=== PATIENT | female | born 1975 | race Caucasian/White ===

== ENCOUNTER 2020-01-11 12:00 | Emergency (ER) | payer BC, OTHER ==
[~2020-01-11] VITALS: Ht 152.4 cm; Wt 64.4 kg
[2020-01-11 12:00] VITALS: BP 127/94
[~2020-01-11 12:00] MED LIST: AMLO5TAB2 PO; HYDR10TA13 PO; HYDR20TA; HYDR20TA PO; INSASP10V; INSASP10V SQ; INSU100V6; INSU100V6 SQ; LEVO125T; LISI40TA PO; LVT.112T PO; MTP50T PO; PREN1TAB39 PO
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
--- OUTSIDE RECORDS SUMMARY | 2020-01-11 13:00 | XMS REPORT | CCD ---
Author Author Helena Key Organization Elida Noriega MD, [facility] Address [address] [place] [address] Phone Care Team Providers Care Registered Nurse Maternity Name Role Phone PP Unavailable CCM Unavailable Summary Purpose Interface Exchange Insurance Providers Payer name Policy type / Coverage type Covered democrat ID Effective Begin Date Effective End Date Blue Cross Blue [facility] e Cross/Blue Shield [id number] 2016 Un known Family history Father Diagnosis Age At Onset Hypertension Unknown Hyperlipidemia Unknown Diabetes mellitus Type 2 Unknown Mother Diagnosis Age At Onset Diabetes mellitus Type 2 Unknown Social History Social History Element Codes Description Effective Dates Marital status Unknown M arried 11/11/2015 Number of children Unknown 2 11/11/2015 Employment Unknown 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 [employer] 11/11/[address]: 160564286 Never smoker 11/11/2015 Alcohol history Unknown occasionally drinks alcohol 11/11/2015 Allergies, Adverse Reactions, Alerts Substance Reaction Codes Entered Date Inactivated Date Status AUGMENTIN rash RxNorm: 354307 11/11/2015 No Inactive Date Active Past Medical History Illness Codes Condition Status Onset Date Resolved Date Hypothryroidism Unknown Active 12/10/2016 Unknow n Essential (primary) hypertension ICD-9: 401.9 ICD-10: I10 Active 11/10/2015 Unknown Hypothyroidism, unsp ecified ICD-9: 244.9 ICD-10: E03.9 Active 12/10/2016 Unknown Type 1 diabetes han itus without complications ICD-9: 250.01 ICD-10: E10.9 Active 11/10/2015 Unknown 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 Unknow n Celiac disease Unknown Active 11/11/2015 Unknow n Hypertension Unknown Active 11/11/2015 Unknow n Nonscarring hair los s, unspecified ICD-9: 704.00 ICD-10: L65.9 Active 11/10/2015 Unknown 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 ICD-10: E27.1 Active 11/10/2015 Unknown Problems Condition Codes Effectiv e Dates Condition Status Hypothryroidism Unknown 12/10/2016 Active Essential (primary) hypertension ICD-9: 401.9 ICD-10: I10 11/10/2015 Active Hypothyroidism, unsp ecified ICD-9: 244.9 ICD-10: E03.9 12/10/2016 Active Type 1 diabetes han itus without complications ICD-9: 250.01 ICD-10: E10.9 11/10/2015 Active 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 Celiac disease Unknown 11/11/2015 Active Hypertension Unknown 11/11/2015 Active Nonscarring hair los s, unspecified ICD-9: 704.00 ICD-10: L65.9 11/10/2015 Active 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 ICD-10: E27.1 11/10/2015 Active Medications Medication Codes Instruc tions Start Date Stop Date Sta tus Fill Instructions Novolog Flexpen 100 unit/mL subcutaneous RxNorm: 9816188 INJECT 1 UNIT FOR EV BRYCE 20 GRAMS OF CARBS PLUS 1 UNIT FOR EVERY 50MG/DL OVER 120MG/DL, UNLESS BG IS>250MG/DL, THEN USE 1:35MG/DL TO CORRECT 12/31/2015 12/09/2016 Inactive Novolog Flexpen 100 unit/mL subcutaneous RxNorm: 0869739 6-10 with meals and 6-15 Prn Unit(s) SQ 12/30/2015 12/30/2015 Inactive Lantus 100 unit/mL s ubcutaneous solution RxNorm: 483672 35 Unit(s) SQ [facility] 11/11/2015 12/09/2016 In active Lantus 100 unit/mL s ubcutaneous solution RxNorm: 799540 30 Unit(s) SQ QA 11/06/2015 11/10/2015 In active 30 day supply lisinopril 20 mg tablet RxNorm: 158943 1 Tablet(s) PO daily No Start Date Active levothyroxine 112 mc g tablet RxNorm: 868388 1 Tablet(s) PO daily No Start Date Active Synthroid 112 mcg ta blet RxNorm: 275136 1 Tablet(s) PO daily No Start Date Active hydrocortisone 20 mg tablet RxNorm: 966149 1 Tablet(s) PO in the am and 1/2 tab at noon No Start Date Active Lantus 100 unit/mL s ubcutaneous solution RxNorm: 224282 30 Unit(s) SQ QAM No Start Date 11/05/2015 Inactive Novolog Flexpen 100 unit/mL subcutaneous RxNorm: 5548824 6-10 with meals and 6-15 Prn Unit(s) SQ No Start Date 12/29/2015 Inactive Medication Administered No Medication Administered data Immunizations No Immunization data Assessments Condition Codes Effectiv e Dates Hypothyroidism, unspecified ICD-10: E03.9 ICD-9: 244.9 12/10/2016 Essential (primary) hypertension ICD -10: I10 ICD-9: 401.9 12/10/2016 Type 1 diabetes mellitus without complications ICD-10: E10.9 ICD-9: 250.01 12/10/2016 Nonscarring hair loss, unspecified I CD-10: L65.9 ICD-9: 704.00 11/11/2015 Primary adrenocortical insufficiency ICD-10: E27.1 ICD-9: 255.41 11/11/2015 Reason For Visit Reason For Visit Effective Dates Notes diabetes mellitus 12/10/2016 diabetes mellitus 11/11/2015 Results No Results data Review of Systems System Result Effective Dates Constitutional No recent illness 12/10/2016 Constitutional No anorexia 12/10/2016 Constitutional No night sweats 12/10/2016 Constitutional No chills 12/10/2016 Constitutional No diaphoresis 12/10/2016 Constitutional No fatigue 12/10/2016 Constitutional No fever 12/10/2016 Constitutional No insomnia 12/10/2016 Constitutional No malaise 12/10/2016 Constitutional No weight loss 12/10/2016 Constitutional No weight gain 12/10/2016 Eyes No eye discharge Eyes No eye erythema Ears/Nose/Throat/Neck No dizziness 12/10/2016 Ears/Nose/Throat/Neck No headache 12/10/2016 Ears/Nose/Throat/Neck No nasal allergies 12/10/2016 Ears/Nose/Throat/Neck No nasal discharge 12/10/2016 Cardiovascular No chest pain/pressure 12/10/2016 Cardiovascular No dyspnea 12/10/2016 Cardiovascular No edema 12/10/2016 Respiratory No productive sputum 12/10/2016 Respiratory No chest congestion 12/10/2016 Respiratory No cough Gastrointestinal No abdominal pain 12/10/2016 Gastrointestinal No constipation 12/10/2016 Gastrointestinal No diarrhea 12/10/2016 Genitourinary/Nephrology No dysuria 12/10/2016 Dermatologic No rash Neurologic No alteration of consciousness 12/10/2016 Psychiatric No anxiety 0 12/10/2016 Endocrine No dry or coarse skin 12/10/2016 Hematologic/Lymphatic No abnormal ec chymoses 12/10/2016 Constitutional No recent illness 11/11/2015 Constitutional No anorexia 11/11/2015 Constitutional No night sweats 11/11/2015 Constitutional No chills 11/11/2015 Constitutional No diaphoresis 11/11/2015 Constitutional No fatigue 11/11/2015 Constitutional No fever 11/11/2015 Constitutional No insomnia 11/11/2015 Constitutional No malaise 11/11/2015 Constitutional No weight loss 11/11/2015 Constitutional No weight gain 11/11/2015 Eyes No eye discharge Eyes No eye erythema Ears/Nose/Throat/Neck No dizziness 11/11/2015 Ears/Nose/Throat/Neck No headache 11/11/2015 Ears/Nose/Throat/Neck No nasal allergies 11/11/2015 Ears/Nose/Throat/Neck No nasal discharge 11/11/2015 Cardiovascular No chest pain/pressure 11/11/2015 Cardiovascular No dyspnea 11/11/2015 Cardiovascular No edema 11/11/2015 Respiratory No productive sputum 11/11/2015 Respiratory No chest congestion 11/11/2015 Respiratory No cough Gastrointestinal No abdominal pain 11/11/2015 Gastrointestinal No diarrhea 11/11/2015 Gastrointestinal No constipation 11/11/2015 Genitourinary/Nephrology No dysuria 11/11/2015 Musculoskeletal joint complaint 11/11/2015 Dermatologic No rash Neurologic No alteration of consciousness 11/11/2015 Psychiatric No anxiety 0 11/11/2015 Endocrine No dry or coarse skin 11/11/2015 Hematologic/Lymphatic No abnormal ec chymoses 11/11/2015 Physical Exam Exam Name System Name It em Name Status Result Effective Dates Notes Full Exam - General 1994 Constitutional general appearance Overall: well developed 12/10/2016 None Full Exam - General 1994 Constitutional general appearance Overall: in no acute distress 12/10/2016 None Full Exam - General 1994 Constitutional general appearance Overall: well nourished 12/10/2016 None Full Exam - General 1994 Eyes conjunctiva/eyelids Overall: conjunctiva clear 12/10/2016 None Full Exam - General 1994 Eyes pupils and irises Overall: pupils equal, round, reactive to light and accomodation 12/10/2016 None Full Exam - General 1994 Ears/Nose/Throat otoscopic exam Overall: external auditory canals clear 12/10/2016 None Full Exam - General 1994 Ears/Nose/Throat otoscopic exam Overall: tympanic membranes clear 12/10/2016 None Full Exam - General 1994 Ears/Nose/Throat oral cavity/pharynx/larynx Overall: oral mucosa clear 12/10/2016 None Full Exam - General 1994 Respiratory auscultation Overall: breath sounds clear bilaterally 12/10/2016 None Full Exam - General 1994 Respiratory respiratory effort/rhythm Overall: no retractions 12/10/2016 None Full Exam - General 1994 Respiratory respiratory effort/rhythm Overall: normal rate 12/10/2016 None Full Exam - General 1994 Cardiovascular auscultation of heart Overall: regular rate 12/10/2016 None Full Exam - General 1994 Cardiovascular auscultation of heart Overall: normal heart sounds 12/10/2016 None Full Exam - General 1994 Cardiovascular auscultation of heart Overall: no murmurs 12/10/2016 None Full Exam - General 1994 Abdomen abdominal exam Overall: no tenderness 12/10/2016 None Full Exam - General 1994 Abdomen abdominal exam Overall: normal bowel sounds 12/10/2016 None Full Exam - General 1994 Lymphatic neck nodes Overall: anterior cervical chain benign 12/10/2016 None Full Exam - General 1994 Lymphatic neck nodes Overall: posterior cervical chain benign 12/10/2016 None Full Exam - General 1994 Musculoskeletal gait and station Overall: normal gait 12/10/2016 None Full Exam - General 1994 Musculoskeletal gait and station Overall: normal station 12/10/2016 None Full Exam - General 1994 Integument inspection of skin Overall: few scattered moles, no gross abnormalities 12/10/2016 None Full Exam - General 1994 Neurologic cranial nerves Overall: crainial nerves 2 - 12 grossly intact 12/10/2016 None Full Exam - General 1994 Psychiatric orientation/consciousness Overall: oriented to person, place and time 12/10/2016 None Full Exam - General 1994 Constitutional general appearance Overall: well developed 11/11/2015 None Full Exam - General 1994 Constitutional general appearance Overall: in no acute distress 11/11/2015 None Full Exam - General 1994 Constitutional general appearance Overall: well nourished 11/11/2015 None Full Exam - General 1994 Psychiatric orientation/consciousness Overall: oriented to person, place and time 11/11/2015 None Full Exam - General 1994 Neurologic cranial nerves Overall: crainial nerves 2 - 12 grossly intact 11/11/2015 None Full Exam - General 1994 Integument inspection of skin Overall: few scattered moles, no gross abnormalities 11/11/2015 None Full Exam - General 1994 Musculoskeletal gait and station Overall: normal gait 11/11/2015 None Full Exam - General 1994 Musculoskeletal gait and station Overall: normal station 11/11/2015 None Full Exam - General 1994 Lymphatic neck nodes Overall: anterior cervical chain benign 11/11/2015 None Full Exam - General 1994 Lymphatic neck nodes Overall: posterior cervical chain benign 11/11/2015 None Full Exam - General 1994 Abdomen abdominal exam Overall: no tenderness 11/11/2015 None Full Exam - General 1994 Abdomen abdominal exam Overall: normal bowel sounds 11/11/2015 None Full Exam - General 1994 Cardiovascular auscultation of heart Overall: regular rate 11/11/2015 None Full Exam - General 1994 Cardiovascular auscultation of heart Overall: no murmurs 11/11/2015 None Full Exam - General 1994 Cardiovascular auscultation of heart Overall: normal heart sounds 11/11/2015 None Full Exam - General 1994 Respiratory respiratory effort/rhythm Overall: no retractions 11/11/2015 None Full Exam - General 1994 Respiratory respiratory effort/rhythm Overall: normal rate 11/11/2015 None Full Exam - General 1994 Respiratory auscultation Overall: breath sounds clear bilaterally 11/11/2015 None Full Exam - General 1994 Ears/Nose/Throat otoscopic exam Overall: external auditory canals clear 11/11/2015 None Full Exam - General 1994 Ears/Nose/Throat otoscopic exam Overall: tympanic membranes clear 11/11/2015 None Full Exam - General 1994 Ears/Nose/Throat oral cavity/pharynx/larynx Overall: oral mucosa clear 11/11/2015 None Full Exam - General 1994 Eyes conjunctiva/eyelids Overall: conjunctiva clear 11/11/2015 None Full Exam - General 1994 Eyes pupils and irises Overall: pupils equal, round, reactive to light and accomodation 11/11/2015 None Procedures No Procedures data Vital Signs Date Vital 12/10/2016 Blood Pressure 1: 136/86 Code: 8480-6 BMI: 29.2 Code: 76302-0 Heart Rate 1: 75 bpm Height: 5' SpO2: 98% Weight: 149 lbs 8 oz 11/11/2015 Blood Pressure 1: 150/90 Code: 8480-6 Blood Pressure 1: 148/88 Code: 8480-6 BMI: 27.9 Code: 57699-9 Heart Rate 1: 70 bpm Height: 5' SpO2: 99% Weight: 143 lbs Functional Status No Functional Status data History of Present Illness Symptom Name Status Resu lt Effective Date Notes diabetes mellitus Quality insulin dependent 12/10/2016 None diabetes mellitus Pertinent Findings Denies dizziness 12/10/2016 None diabetes mellitus Pertinent Findings Denies dyspnea 12/10/2016 None 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 hypothyroid Onset and Resolution ongoing 12/10/2016 None hypothyroid Pertinent Findings Denies coarse hair 12/10/2016 None hypothyroid Pertinent Findings Denies coarse skin 12/10/2016 None hypothyroid Pertinent Findings hair loss 12/10/2016 None diabetes mellitus Test results HgbA1c level 7.3 12/10/2016 None diabetes mellitus Blood glucose levels _ 12/10/2016 None diabetes mellitus Significant Medications insulin 12/10/2016 pump diabetes mellitus Alleviating Factors insulin 12/10/2016 None diabetes mellitus Nutrition ADA diet 12/10/2016 None diabetes mellitus Quality insulin dependent 11/11/2015 None diabetes mellitus Test results Pt checking blood glucose readings, did not bring results to clinic 11/11/2015 None diabetes mellitus Glucose monitoring before meals 11/11/2015 None diabetes mellitus Glucose monitoring fasting 11/11/2015 None diabetes mellitus Glucose monitoring bedtime 11/11/2015 None diabetes mellitus Pertinent Findings Denies dizziness 11/11/2015 None diabetes mellitus Pertinent Findings Denies dyspnea 11/11/2015 None 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 P ATIENT, LEVEL III Diagnosis: Type 1 diabetes mellitus without complications[ICD10: E10.9] Diagnosis: Essential (primary) hypertension[ICD10: I10] Diagnosis: Hypothyroidism, unspecified[ICD10: E03.9] [facility] CPT-4: 90153 12/10/2016 ([id number]) OFFICE VISI T [facility] - LEVEL 3 Diagnosis: Essential (primary) hypertension[ICD10: I10] Diagnosis: Type 1 diabetes mellitus without complications[ICD10: E10.9] Diagnosis: Primary adrenocortical insufficiency[ICD10: E27.1] Diagnosis: Nonscarring hair loss, unspecified[ICD10: L65.9] [facility] CPT-4: 03519 11/11/2015 Plan of Care Planned Activity Notes C odes Status Date Visit Plan: Hypertension - well controll ed - continue with current medications, continue with no added salt diet. 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 Pt is to continue with current dose of medication unless directed otherwise. Check labs at regular intervals wither q 3 months or q 6 months based on previous levels of control. 2016 Patient Education: Patient Medication Summary Completed 12/10/2016 Patient Education: Obesity Completed 12/10/2016 Appointment: Caroline Key WPtel: [phone] (15 min) Moderate 12/03/2016 Appointment: Wanda Lau [facility] [phone] [id number] [place] (15 min) Moderate 08/24/2016 Visit Plan: Diabetes Mellitus - type 1- I have recommended for the patient to have follow up labs prior to the next office visit. The patient has been instructed to continue with current medications as previously directed, continue with regular FSBS monitoring to assure continued control of diabetes. Pt to call for any acute concerns, complaints, or if the blood glucose readings are starting to become less controlled.Hypertension - well controlled - continue with current medications, continue with no added salt diet. Pt has been encouraged to exercise daily.The pt has been advised to call the office if there are any acute concerns about change in blood pressure readings at home. 2015 Appointment: Caroline Key [facility] [phone] [phone] New Patient 11/11/2015 Patient Education: Patient Medication Summary Completed 11/11/2015 Patient Education: Obesity Completed 11/11/2015 Care Plan: Referral Order SNOMED-CT : [id number] Pending 11/11/2015 Referral: Vidhi Conroy Referral Completed Referral: Vidhi Conroy Referral Initiated Instructions Comment . Hypertension - wel l controlled - continue with current medications, continue with no added salt diet. Pt has been encouraged to exercise daily. The pt has been advised to call the office if there are any acute concerns about change in blood pressure readings at home. 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 Pt is to continue with current dose of medication unless directed otherwise. Check labs at regular intervals wither q 3 months or q 6 months based on previous levels of control. Refer to Dr Conroy Recommend well woman exam . Diabetes Mellitus - type 1- I have re commended for the patient to have follow up labs prior to the next office visit. The patient has been instructed to continue with current medications as previously directed, continue with regular FSBS monitoring to assure continued control of diabetes. Pt to call for any acute concerns, complaints, or if the blood glucose readings are starting to become less controlled. Hypertension - well controlled - continue with current medications, continue with no added salt diet. Pt has been encouraged to exercise daily. The pt has been advised to call the office if there are any acute concerns about change in blood pressure readings at home.
--- OUTSIDE RECORDS SUMMARY | 2020-01-11 13:00 | XMS REPORT | CCD ---
Author Author Helena Key Organization Elida Noriega MD, [facility] Address [address] [place] [address] Phone Care Team Providers Care Research Subject Name Role Phone PP Unavailable CCM Unavailable Summary Purpose Interface Exchange Insurance Providers Payer name Policy type / Coverage type Covered constitution party ID Effective Begin Date Effective End Date Blue Cross Blue [facility] e Cross/Blue Shield [id number] 2016 Un known Family history Father Diagnosis Age At Onset Hypertension Unknown Hyperlipidemia Unknown Diabetes mellitus Type 2 Unknown Mother Diagnosis Age At Onset Diabetes mellitus Type 2 Unknown Social History Social History Element Codes Description Effective Dates Marital status Unknown M arried 11/11/2015 Number of children Unknown 2 11/11/2015 Employment Unknown 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 [employer] 11/11/[address]: 607076169 Never smoker 11/11/2015 Alcohol history Unknown occasionally drinks alcohol 11/11/2015 Allergies, Adverse Reactions, Alerts Substance Reaction Codes Entered Date Inactivated Date Status AUGMENTIN rash RxNorm: 264364 11/11/2015 No Inactive Date Active Past Medical [...] Instructions Novolog Flexpen 100 unit/mL subcutaneous RxNorm: 7543860 INJECT 1 UNIT FOR EV BRYCE 20 GRAMS OF CARBS PLUS 1 UNIT FOR EVERY 50MG/DL OVER 120MG/DL, UNLESS BG IS>250MG/DL, THEN USE 1:35MG/DL TO CORRECT 12/31/2015 12/09/2016 Inactive Novolog Flexpen 100 unit/mL subcutaneous RxNorm: 0637249 6-10 with meals and 6-15 Prn Unit(s) SQ 12/30/2015 12/30/2015 Inactive Lantus 100 unit/mL s ubcutaneous solution RxNorm: 863720 35 Unit(s) SQ [facility] 11/11/2015 12/09/2016 In active Lantus 100 unit/mL s ubcutaneous solution RxNorm: 372833 30 Unit(s) SQ QA 11/06/2015 11/10/2015 In active 30 day supply lisinopril 20 mg tablet RxNorm: 440854 1 Tablet(s) PO daily No Start Date Active levothyroxine 112 mc g tablet RxNorm: 041760 1 Tablet(s) PO daily No Start Date Active Synthroid 112 mcg ta blet RxNorm: 853892 1 Tablet(s) PO daily No Start Date Active hydrocortisone 20 mg tablet RxNorm: 893113 1 Tablet(s) PO in the am and 1/2 tab at noon No Start Date Active Lantus 100 unit/mL s ubcutaneous solution RxNorm: 690840 30 Unit(s) SQ QAM No Start Date 11/05/2015 Inactive Novolog Flexpen 100 unit/mL subcutaneous RxNorm: 1658584 6-10 with meals and 6-15 Prn Unit(s) [...] 1: 136/86 Code: 8480-6 BMI: 29.2 Code: 96881-3 Heart Rate 1: 75 bpm Height: 5' SpO2: 98% Weight: 149 lbs 8 oz 11/11/2015 Blood Pressure 1: 150/90 Code: 8480-6 Blood Pressure 1: 148/88 Code: 8480-6 BMI: 27.9 Code: 23819-6 Heart Rate 1: 70 bpm Height: 5' SpO2: 99% Weight: 143 lbs Functional Status No Functional Status data History of Present Illness Symptom Name Status Resu lt Effective Date Notes diabetes mellitus Quality insulin dependent 12/10/2016 None diabetes mellitus Pertinent Findings Denies dizziness 12/10/2016 None diabetes mellitus Pertinent Findings Denies dyspnea 12/10/2016 None 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 12/10/2016 None hypothyroid Onset and Resolution [...] Findings Denies dyspnea 11/11/2015 None 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 2015 [facility]ment: [facility] [phone] [phone] New Patient 11/11/2015 Patient Education: Patient Medication Summary Completed 11/11/2015 Patient Education: Obesity Completed 11/11/2015 Care Plan: Referral Order SNOMED-CT : [id number] Pending 11/11/2015 Referral: Vidhi Conroy Referral Completed [...] pressure readings at home. 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
--- OUTSIDE RECORDS SUMMARY | 2020-01-11 13:00 | XMS REPORT ---
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 Name Role Phone [facility] PP Unavailable [facility] CCM Unavailable QUINCY DO, JJ K Unavailable Unavailable Unavailable Unavailable Unavailable Unavailable Unavailable Unavailable Allergies No Information Encounters No Information Medical Equipment No Information Goals No Information Immunizations The data below is from unstructured sourcesNo immunization records.No Immunization dataNo Immunization dataNo Immunization dataNo Immunization data Interventions No Information Medications No Information Payers No Information Plan of Treatment The data below is from unstructured sources Discharge Date 05/19/16 4:55am Disposition 01 HOME, SELF-CARE Condition at Discharge Improved Instructions/Education Provided HYPO GLYCEMIA Low Blood Sugar in People With Diabetes Prescriptions See Medication Section Referrals EVENS RAZO MD - P [facility] Physician Additional Instructions/Education CH NUSRAT YOUR BLOOD GLUCOSE EVERY HOUR FOR THE NEXT 4 HOURS, EAT HIGH PROTEIN MEALS/ SNACKS TAKE YOUR INSULIN PRESCRIBED RETURN TO ER IF SYMPTOMS RETURN All discharge instructions reviewed with patient and/or family. Voiced understanding. Problems Active Problems Problem Problem Date Last Documented Episodic/Chr Provider Classificati Recorded Date onic on Diabetes Type 2 diabetes mellitus with Chronic JJ QUINCY DO mellitus hypoglycemia without coma with complication s (2 sources) Past or Other Problems Problem Problem Date Last Documented Episodic/Chr Provider Classificati Recorded Date onic on Other senior care (current) use of insulin Episodic JJ QUINCY DO aftercare (1 source) Procedures The data below is from unstructured sourcesNo known history of procedures.No Procedures dataNo Procedures dataNo Procedures dataNo Procedures data Results The data below is from unstructured sourcesNo Results dataNo Results dataNo Results data Social History No Information Vital Signs The data below is from unstructured sources Vital Response Date/Time Temperature (Fahrenheit) 98.7 degree s F (97.6 - 99.5) 05/19/2016 2:50am Temperature (Calculated Celsius) 37. 40196 degrees C (36.4 - 37.5) 05/19/2016 2:50am Temperature Source Tympanic 05/19/2016 2:50am Pulse Rate (adult) 101 bpm (60 - 90) 05/19/2016 2:50am Respiratory Rate 29 bpm (12 - 24) 05/19/2016 2:50am Blood Pressure 158/87 mm Hg 05/19/2016 2:50am Blood Pressure Mean 110 mm Hg 05/19/2016 2:50am Pain Numeric Pain Scale 0-No Pain 05/19/2016 2:50am Height (Feet) 5 feet 2:50am Height (Inches) 2 inches 05/19/2016 2:50am Height (Calculated Centimeters) 157. 513939 cm 05/19/2016 2:50am Weight (Pounds) 130 pounds 05/19/2016 2:50am Weight (Calculated Kilograms) 58.967 009 kilograms 05/19/2016 2:50am Capillary Refill Capillary Refill Less Than 3 Seconds 05/19/2016 2:50am Height 5 ft 2 in Weight 130 lb Body Mass Index 23.8 kg/m^2 Functional Status The data below is from unstructured sourcesNo functional status results.No Functional Status dataNo Functional Status dataNo Functional Status dataNo Functional Status data Mental Status No Information Advance Directives No Advance Directive data Directive Response Recor ded Date/Time Advance Directives No 2:50am Health Care Power of Multimedia Teacher No 05/19/16 2:50am Organ Donor No 05/19/16 2:50am Resuscitation Status Full Code 05/19/16 2:50am Discharge Instructions No hospital discharge instructions. Summary Purpose Interface ExchangeInterface Exchange Family History Diagnosis Age At Onset Hypertension Unknown Hyperlipidemia Unknown Diabetes mellitus Type 2 Unknown Diagnosis Age At Onset Diabetes mellitus Type 2 Unknown Assessments Condition Codes Effectiv e Dates Hypothyroidism, unspecified ICD-10: E03.9 ICD-9: 244.9 12/10/2016 Essential (primary) hypertension ICD -10: I10 ICD-9: 401.9 12/10/2016 Type 1 diabetes mellitus without complications ICD-10: E10.9 ICD-9: 250.01 12/10/2016 Nonscarring hair loss, unspecified I CD-10: L65.9 ICD-9: 704.00 11/11/2015 Primary adrenocortical insufficiency ICD-10: E27.1 ICD-9: 255.41 11/11/2015 Chief Complaint Reason For Visit Effective Dates Notes diabetes mellitus 12/10/2016 diabetes mellitus 11/11/2015 Review of System System Result Effective Dates Constitutional No recent [...] reactive to light and accomodation 11/11/2015 None History of Present Illness Symptom Name Status Resu lt Effective Date Notes diabetes mellitus Quality insulin dependent 12/10/2016 None diabetes mellitus Pertinent Findings Denies dizziness 12/10/2016 None diabetes mellitus Pertinent Findings Denies dyspnea 12/10/2016 None 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 Hypertension - wel l controlled - continue with current medications, continue with no added salt diet. Pt has been encouraged to exercise daily. The pt has been advised to call the office if there are any acute concerns about change in blood pressure readings at home. 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 Additional Source Comments This clinical document has been generated using [employer] software that has been certified by the Office of the National Coordinator for Health Information Technology (ONC 15.99.04.3023.Diam.31.00.0.358454) and the National Committee for Journalism Professor (NCQA, as an eMeasure certified technology). FOR RECORDS PERTAINING TO PATIENTS WHO ARE OR HAVE BEEN ENROLLED IN A CHEMICAL D EPENDENCY/SUBSTANCE ABUSE PROGRAM, SOME INFORMATION MAY BE OMITTED. This clinica l summary was aggregated from multiple sources. Caution should be exercised in using it in the provision of clinical care. This summary normalizes information from multiple sources, and as a consequence, information in this document may ma terially change the coding, format and clinical context of patient data. In gil tion, data may be omitted in some cases. CLINICAL DECISIONS SHOULD BE BASED ON T HE PRIMARY CLINICAL RECORDS. [facility]. provides no warranty or guara ntee of the accuracy or completeness of information in this document.The followi ng information is based on time limited clinical information
--- OUTSIDE RECORDS SUMMARY | 2020-01-11 13:00 | XMS REPORT | Continuity of Care Document ---
Author Organization Unknown Address Unknown Phone Unavailable Allergies Active Description Code Type Severity Reaction Onset Reported/Identified Relationship to Patient Clinical Status Yes amoxicillin [id number] Drug Aller gy Unknown N/A 06/15/2008 Yes potassium clavulanate [id number] Drug Allergy Unknown N/A 06/15/2008 Medications There is no data. Problems Date Dx Coded Attending Type Code Diagnosis Diagnosed By 05/19/2016 QUINCY DO JJ K Ot E11.649 TYPE 2 DIABETES MELLITUS WITH HYPOGLYCEM 05/19/2016 QUINCY DO, JJ K Ot Z79.4 LONGTERM (CURRENT) USE OF INSULIN 05/20/2016 QUINCY DO, JJ K Ot E11.649 TYPE 2 DIABETES MELLITUS WITH HYPOGLYCEM 05/20/2016 QUINCY DO, JJ K Ot Z79.4 LONGTERM (CURRENT) USE OF INSULIN Procedures There is no data. Results Test Result Range Complete blood count (CBC) with automate d white blood cell (WBC) differential - 05/19/16 02:50 Blood leukocytes automated count (number/volume) 11.5 10*3/uL 4.3-11.0 Blood erythrocytes automated count (number/volume) 4.65 10*6/uL 4.35-5.85 Venous blood hemoglobin measurement (mass/volume) 13.0 g/dL 11.5-16.0 Blood hematocrit (volume fraction) 39 % 35-52 Automated erythrocyte mean corpuscular volume 84 [ foz_us] 80-99 Automated erythrocyte mean corpuscular h emoglobin (mass per erythrocyte) 28 pg 25-34 Automated erythrocyte mean corpuscular h emoglobin concentration measurement (mass/volume) 33 g/dL 32-36 Automated erythrocyte distribution width ratio 14. 4 % 10.0- 14.5 Automated blood platelet count (count/volume) 396 10*3/uL 130-400 Automated blood platelet mean volume measurement 8.5 [foz_us] 7.4-10.4 Automated blood neutrophils/100 leukocytes 37 % 42-75 Automated blood lymphocytes/100 leukocytes 52 % 12-44 Blood monocytes/100 leukocytes 10 % 0-12 Automated blood eosinophils/100 leukocytes 2 % 0-10 Automated blood basophils/100 leukocytes 0 % 0-10 Blood neutrophils automated count (number/volume) 4.2 10*3 1.8-7.8 Blood lymphocytes automated count (number/volume) 5.9 10*3 1.0-4.0 Blood monocytes automated count (number/volume) 1. 1 10*3 0.0-1.0 Automated eosinophil count 0.2 10*3/uL 0 .0-0.3 Automated blood basophil count (count/volume) 0.0 10*3/uL 0.0-0.1 Serum or plasma choriogonadotropin (preg marisol test) detection - 05/19/16 02:50 Serum or plasma choriogonadotropin ( test) de tection NEGATIVE NEGATIVE Comprehensive metabolic panel - 05/19/16 02:50 Serum or plasma sodium measurement (moles/volume) 140 mmol/L 135-145 Serum or plasma potassium measurement (moles/volume) 2.9 mmol/L 3.6-5.0 Serum or plasma chloride measurement (moles/volume) 109 mmol/L 98-107 Carbon dioxide 22 mmol/L 21-32 Serum or plasma anion gap determination (moles/volume) 9 mmol/L 5-14 Serum or plasma urea nitrogen measurement (mass/volume ) 22 mg/dL 7-18 Serum or plasma creatinine measurement (mass/volume) 0.88 mg/dL 0.60-1.30 Serum or plasma urea nitrogen/creatinine mass ratio 25 NRG Serum or plasma creatinine measurement w ith calculation of estimated glomerular filtration rate > NRG Serum or plasma glucose measurement (mass/volume) 30 mg/dL 70-105 Serum or plasma calcium measurement (mass/volume) 9.0 mg/dL 8.5-10.1 Serum or plasma total bilirubin measurement (mass/volu me) 0.2 mg/dL 0.1-1.0 Serum or plasma alkaline phosphatase luca surement (enzymatic activity/volume) 48 U/L 40-136 Serum or plasma aspartate aminotransfera se measurement (enzymatic activity/volume) 25 U/L 5-34 Serum or plasma alanine aminotransferase measurement (enzymatic activity/volume) 22 U/L 0-55 Serum or plasma protein measurement (mass/volume) 6.9 g/dL 6.4-8.2 Serum or plasma albumin measurement (mass/volume) 3.7 g/dL 3.2-4.5 Serum or plasma amylase measurement (enz ymatic activity/volume) - 05/19/16 02:50 Serum or plasma amylase measurement (enzymatic activit y/volume) 77 U/L 25-125 Lipase - 05/19/16 02:50 Lipase 33 U/L 8-78 Capillary blood glucose measurement by g lucometer (mass/volume) - 05/19/16 02:52 Capillary blood glucose measurement by glucometer (mas s/volume) 29 mg/dL 70-110 Capillary blood glucose measurement by g lucometer (mass/volume) - 05/19/16 03:29 Capillary blood glucose measurement by glucometer (mas s/volume) 100 mg/dL 70-110 Complete urinalysis with reflex to cultu re - 05/19/16 04:07 Urine color determination YELLOW NRG Urine clarity determination CLEAR NR G Urine pH measurement by test strip 6.5 5-9 Specific gravity of urine by test strip 1.010 1.016-1.022 Urine protein assay by test strip, semi-quantitative 3+ NEGATIVE Urine glucose detection by automated test strip 3+ NEGATIVE Erythrocytes detection in urine sediment by light micr oscopy 5+ NEGATIVE Urine ketones detection by automated test strip NE GATIVE NEGATIVE Urine nitrite detection by test strip NEGATIVE NEGATIVE Urine total bilirubin detection by test strip NEGA TIVE NEGATIVE Urine urobilinogen measurement by automated test strip (mass/volume) NORMAL NORMAL Urine leukocyte esterase detection by dipstick 1+ NEGATIVE Automated urine sediment erythrocyte cou nt by microscopy (number/high power field) [HPF] NRG Automated urine sediment leukocyte count by microscopy (number/high power field) NONE NRG Bacteria detection in urine sediment by light microsco py NEGATIVE NRG Squamous epithelial cells detection in u rine sediment by light microscopy 2-5 NRG Crystals detection in urine sediment by light microsco py NONE NRG Casts detection in urine sediment by light microscopy NONE NRG Mucus detection in urine sediment by light microscopy NEGATIVE NRG Complete urinalysis with reflex to culture NO NRG Capillary blood glucose measurement by g lucometer (mass/volume) - 05/19/16 04:08 Capillary blood glucose measurement by glucometer (mas s/volume) 95 mg/dL 70-110 Capillary blood glucose measurement by g lucometer (mass/volume) - 05/19/16 04:53 Capillary blood glucose measurement by glucometer (mas s/volume) 221 mg/dL 70-110 Capillary blood glucose measurement by g lucometer (mass/volume) - 01/11/20 12:05 Capillary blood glucose measurement by glucometer (mas s/volume) 67 mg/dL 70-110 Encounters ACCT No. Visit Date/Time Discharge Status Pt. Type Provider Facility Loc./Unit Complaint [id number] 04/15/2017 09:45:25 04/15/2017 23:59:5 9 CLS Outpatient [id number] 05/19/2016 02:50:00 016 04:55:[facility] [id number] 01/11/2020 12:30:00 Document Registration
== END 2020-01-11 12:56 | disposition home or self-care (01) ==
LOC: EDUNIT# 12:00 → ER 12:01
DX: E10.649 Type 1 diabetes mellitus with hypoglycemia without coma (principal); Z79.4 Long term (current) use of insulin; Z88.0 Allergy status to penicillin; Z88.1 Allergy status to other antibiotic agents; Z79.52 Long term (current) use of systemic steroids
CPT/HCPCS: 82962